=== PATIENT | male | born 1995 | race Two or more races ===

== ENCOUNTER 2016-11-09 21:20 | Emergency (ER) | payer SELFPAY ==
--- NOTE | ~2016-11-09 | ER ---
PATIENT'S NAME: EMILIANA PAINTER [facility] AGE: 21 Y [address] ROOM: [place] [address] LOCATION: [facility] ADMIT DATE: 11/09/2016 ER/Outpatient Report DISCHARGE DATE: 11/10/2016 FAMILY PHYSICIAN: Isaac Perez MD ATTENDING PHYSICIAN: Praveen Huff Time of Arrival: 2120 hours. Time of Evaluation: 2155 hours. CHIEF COMPLAINT: Vomiting, midepigastric abdominal pain. HISTORY OF PRESENT ILLNESS: This is a 21-year-old male, who presents to the ER, who states he has been having some upper abdominal pain and had 2 emesis today. He states this all started around 3 o'clock this afternoon. He states that this is similar pain to when he had his ulcer in his stomach. He states he is supposed to be taking some Prilosec, but he does not take it every day. He states that he also has a sensation that his legs are having a cold chill, but they are on "fire". He states he has not been running any fevers. He has had no troubles with urination. No diarrhea. He states that he did not take anything over- the-counter for his symptoms. ALLERGIES: NO KNOWN ALLERGIES. MEDICATIONS: Please see medication list in nurse's notes. PAST MEDICAL HISTORY: Asthma, peptic ulcers, gallstone. He has had a colonoscopy and endoscopy. SOCIAL HISTORY: He smokes half pack a day for last 5 years. Drinks alcohol occasionally. REVIEW OF SYSTEMS: A 10-point review of system was completed and was negative with the exception of those discussed in the HPI. PHYSICAL EXAMINATION: VITAL SIGNS: Height 5 feet 7 inches stated, weight 93 kg taken, blood pressure is 128/83, pulse 104, respirations 16, temperature 99.7 degrees tympanically, saturations 96% on room air. Sergio Coma Score is 15. GENERAL: An alert, calm, well-developed male, in no acute distress. HEENT: Head: Normocephalic. Eyes: Pupils are equal and reactive to light. PATIENT'S NAME: EMILIANA PAINTER [facility] AGE: 21 Y [address] ROOM: [place] [address] LOCATION: [facility] ADMIT DATE: 11/09/2016 ER/Outpatient Report DISCHARGE DATE: 11/10/2016 FAMILY PHYSICIAN: Isaac Perez MD ATTENDING PHYSICIAN: Praveen Huff He does display moist mucous membranes. LUNGS: Clear to auscultation bilaterally. No wheezes or crackles. Normal respiratory effort. HEART: Slightly tachycardic. No rhythm, lifts, thrills, or murmurs. ABDOMEN: Soft. He does have some tenderness in his midepigastric region. It just above his umbilicus with palpation. He has no guarding. No rebound tenderness. He has good bowel sounds throughout. No masses are palpated. EXTREMITIES: No clubbing, cyanosis, or edema. Full range of motion of all limbs. LABORATORY DATA AND X-RAYS: CBC: White count is 11.2, hemoglobin is 16.0, platelets 233. CMS was unremarkable. Amylase 35, lipase 95. H. pylori was negative. CT scan is pending. EMERGENCY DEPARTMENT COURSE: During his ER course stay with me, we did start an IV and gave him 2 L of IV fluids along with a GI cocktail p.o. and 40 mg of Protonix IV. I will be turning the patient's care over Dr. Huff at this time due to shift change. The patient understands and agrees with care. TALIA REA PA-C FOR DO BERNARDA ENRIQUE/rajeev /[id number] d: t: 11/14/16 1157, OUTPATIENT REPORT
--- NOTE | ~2016-11-09 | ER ---
PATIENT'S NAME: EMILIANA PAINTER [facility] AGE: 21 Y [address] ROOM: [place] [address] LOCATION: [facility] ADMIT DATE: 11/09/2016 ER/Outpatient Report DISCHARGE DATE: 11/10/2016 FAMILY PHYSICIAN: Isaac Perez MD ATTENDING PHYSICIAN: Praveen Huff ADDENDUM: This is an addendum to Han Pickard PA-C's dictation. Please see her dictation for chief complaint, history of present illness, past medical history, past surgical history, social history, allergies, medications, primary care doctor, review of systems, physical exam. HOSPITAL COURSE: The patient was seen and evaluated by myself in conjunction with Han Pickard PA-C. Transfer of care was made to myself at shift change. I did discuss the case with her. I did see and evaluate the patient. The patient does have a nonsurgical abdominal exam at this time. A CT scan of the abdomen and pelvis is obtained. It is read by the night Radiology. It does show mild central abdominal low-grade enteritis or partial ileus. No significant inflammatory changes are currently seen. Small hiatal hernia, otherwise, unremarkable. I have discussed results with the patient and his girlfriend, who is at the bedside. Once again, his abdominal exam is repeated. He continues to have a nonsurgical abdominal exam at this time. His pain is improved. He does report he has a history of ulceration as well. ASSESSMENT AND PLAN: I have written a prescription for Carafate for home. I have asked he follows up with Dr. Perez in 1 to 2 days for re-evaluation. I have discussed return to care instructions including worsening symptoms or any other concerns to return to the emergency department as soon as possible. The patient is agreeable. Girlfriend is agreeable. They are without further questions at this time. DISPOSITION: The patient discharged to home in good condition. DO SIM ENRIQUE/rajeev /[id number] d: 11/10/16 0405 t: 11/10/16 1706, OUTPATIENT REPORT
[~2016-11-09 21:20] MED LIST: AMOXICILLIN250 MG PO; BIAXIN500 MG PO; PERCOCET 10-321 EACH PO; REGLAN10 MG PO
[2016-11-09 22:41] LABS: BASOPHIL # 0.1 K/uL (0.0-0.2); BASOPHIL % 0.3 %; EOSINOPHIL # 0.1 K/uL (0.0-0.5); EOSINOPHIL % 0.5 %; HEMATOCRIT 45.8 % (37.0-53.0); IMMATURE GRANULOCYTE # 0.1 K/uL (0.0-0.3); IMMATURE GRANULOCYTE % 0.3 %; LYMPHOCYTE % 5.9 %; MCHC 34.9 gm/dL (32.0-36.5); MONOCYTE % 5.9 %; MPV 10.6 fl (9.4-12.4); NEUTROPHIL % 87.1 %; NRBC % 0 /100WBC (0-0.00); PLATELET COUNT 233 K/uL (150-450); RBC 5.52 M/uL (4.00-6.00); RDW-CV 12.7 % (11.9-14.6)
[2016-11-09 22:42] LABS: WBC 17.2 K/uL (4.0-11.0)
[2016-11-09 22:58] LABS: ALK PHOS 104 IU/L (33-138); ALT 22 IU/L (12-78); ANION GAP 13.8 (10.0-19.0); AST 13 IU/L (10-40); BLOOD UREA NITROGEN 10 mg/dL (6-24); CALCIUM 8.9 mg/dL (8.5-10.5); CHLORIDE 106 mMol/L (96-110); CO2 24 mMol/L (22-32); ESTIMATED GFR (MDRD EQUATION) > 60; POTASSIUM 3.8 mMol/L (3.7-5.1); SODIUM 140 mMol/L (135-145); TOTAL PROTEIN 7.4 g/dL (6.0-8.4)
[2016-11-09 23:00] LABS: TOTAL BILIRUBIN 1.4 mg/dL (0.0-1.5)
== END 2016-11-10 00:51 | disposition disaster alternative care site (69) ==
LOC: GMED 21:20
PROVIDERS: Emergency Medicine
DX: R10.13 Epigastric pain (principal); R11.10 Vomiting, unspecified; F17.210 Nicotine dependence, cigarettes, uncomplicated
CPT/HCPCS: C9113; J7030; Q9967

== ENCOUNTER 2016-12-28 23:27 | Emergency (ER) | payer SELFPAY ==
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
== END 2016-12-29 00:45 | disposition disaster alternative care site (69) ==
LOC: GACC 23:27
DX: M54.5 Low back pain (principal); M25.562 Pain in left knee; F17.210 Nicotine dependence, cigarettes, uncomplicated; J45.909 Unspecified asthma, uncomplicated; K80.50 Calculus of bile duct without cholangitis or cholecystitis without obstruction; Z98.890 Other specified postprocedural states

== ENCOUNTER → 2016-12-28 | Outpatient (CLI) | payer OTHER | END | disposition disaster alternative care site (69) | LOC: GAMB 23:07 | DX: S39.92XA Unspecified injury of lower back, initial encounter (principal); M54.5 Low back pain; M25.562 Pain in left knee; K29.50 Unspecified chronic gastritis without bleeding; G89.11 Acute pain due to trauma; V49.9XXA Car occupant (driver) (passenger) injured in unspecified traffic accident, initial encounter | CPT/HCPCS: A0425; A0427; J3010 ==

== ENCOUNTER 2017-02-10 21:50 | Emergency (ER) | payer SELFPAY ==
--- NOTE | ~2017-02-10 | ER ---
PATIENT'S NAME: EMILIANA PAINTER [facility] AGE: 21 Y [address] ROOM: [place] [address] LOCATION: [facility] ADMIT DATE: 02/10/2017 ER/Outpatient Report DISCHARGE DATE: 02/10/2017 FAMILY PHYSICIAN: Isaac Perez MD ATTENDING PHYSICIAN: Tyrone Willis Time of Arrival: 2150 hours. Time of Evaluation: 2200 hours. CHIEF COMPLAINT: Possible ulcer flare. HISTORY OF PRESENT ILLNESS: This is a 21-year-old male who presents to the ER, who states that he feels like he is having a flare-up of his stomach ulcer. He states he is not taking his acid reflux medications for the past couple of months. He states he has been having okay time with this until today. He states he has had some nausea, some vomiting, he feels like he maybe have a little bit of brown emesis. He is having some midepigastric pain, it is stabbing in nature, it does not radiate anywhere. He has had no fever, chills, or troubles with urination. He denies any other problems at this time. ALLERGIES: NO KNOWN ALLERGIES. MEDICATIONS: None. PAST MEDICAL HISTORY: Peptic ulcer. PAST SURGERIES: Colonoscopy, EGD, and gallstones removed. SOCIAL HISTORY: Smokes half pack a day. Drinks alcohol occasionally. REVIEW OF SYSTEMS: All systems reviewed and were negative with the exception of those discussed in the HPI. PHYSICAL EXAMINATION: VITAL SIGNS: Height 5 feet and 7 inches stated, weight 96.1 kg taken, blood pressure is 140/83, pulse 88, respirations 16, temperature 96 degrees tympanically, and saturations 97% on room air. PATIENT'S NAME: EMILIANA PAINTER [facility] AGE: 21 Y [address] ROOM: [place], [place] [address] LOCATION: [facility] ADMIT DATE: 02/10/2017 ER/Outpatient Report DISCHARGE DATE: 02/10/2017 FAMILY PHYSICIAN: Isaac Perez MD ATTENDING PHYSICIAN: Tyrone Willis GENERAL: Alert, calm, well-developed male, in no acute distress. HEENT: Head: Normocephalic. Eyes: Pupils are equal and reactive to light. He does display moist mucous membranes. LUNGS: Clear to auscultation bilaterally. No wheezes or crackles. HEART: Regular rate and rhythm. ABDOMEN: Soft. He has mild tenderness in his midepigastric region. He has good bowel sounds throughout. No masses are palpated. EXTREMITIES: No clubbing or cyanosis. Has full range of motion of all limbs. LABORATORY DATA: CBC: White count is 6.1, hemoglobin is 15.0, and platelets 185. CMS is unremarkable. Amylase is 32. Lipase is 96. IMPRESSION: 1. History of acid reflux. 2. Nausea and vomiting. ASSESSMENT AND PLAN: We did give the patient a GI cocktail, a [place], and a Zofran here for his discomfort. He states that this did improve that. We advised him to picker feeder some omeprazole and take it every day. He needs to eat bland foods and push fluids. He may take some [id number] Tums or Rolaids for any breakthrough pain. He should follow up with his primary care physician if no improvement and we did provide him without a [facility] card. The patient understands and agrees with care. TALIA REA PA-C FOR MD BERNARDA LORENZANA/rajeev /[id number] d: 02/11/17 0303 t: 02/13/17 1253, OUTPATIENT REPORT
[2017-02-10 22:34] LABS: BASOPHIL % 0.5 %; EOSINOPHIL # 0.2 K/uL (0.0-0.5); EOSINOPHIL % 2.5 %; HEMATOCRIT 42.1 % (37.0-53.0); IMMATURE GRANULOCYTE % 0.3 %; LYMPHOCYTE # 1.2 K/uL (0.8-4.0); LYMPHOCYTE % 19.5 %; MCH 29.8 pg (27.0-34.0); MCHC 35.6 gm/dL (32.0-36.5); MCV 83.5 fl (83.0-98.0); MONOCYTE # 0.4 K/uL (0.0-1.0); MONOCYTE % 6.9 %; MPV 11.1 fl (9.4-12.4); NEUTROPHIL # (ANC) 4.3 K/uL (1.4-9.0); NEUTROPHIL % 70.3 %; NRBC % 0 /100WBC (0-0.00); RBC 5.04 M/uL (4.00-6.00); RDW-CV 12.9 % (11.9-14.6); WBC 6.1 K/uL (4.0-11.0)
[2017-02-10 22:37] LABS: PLATELET COUNT 185 K/uL (150-450)
[2017-02-10 22:52] LABS: ALBUMIN 3.8 gm/dL (3.5-5.0); ALK PHOS 108 IU/L (33-138); ALT 39 IU/L (12-78); ANION GAP 11.8 (10.0-19.0); AST 25 IU/L (10-40); BLOOD UREA NITROGEN 10 mg/dL (6-24); CALCIUM 8.5 mg/dL (8.5-10.5); CHLORIDE 108 mMol/L (96-110); CO2 25 mMol/L (22-32); POTASSIUM 3.8 mMol/L (3.7-5.1); SODIUM 141 mMol/L (135-145); TOTAL PROTEIN 7.2 g/dL (6.0-8.4)
[2017-02-10 22:53] LABS: TOTAL BILIRUBIN 0.5 mg/dL (0.0-1.5)
== END 2017-02-10 23:19 | disposition disaster alternative care site (69) ==
LOC: GMED 21:50
PROVIDERS: Physician Assistant Medical
DX: R11.2 Nausea with vomiting, unspecified (principal); F17.210 Nicotine dependence, cigarettes, uncomplicated; Z98.890 Other specified postprocedural states; Z87.11 Personal history of peptic ulcer disease; Z87.19 Personal history of other diseases of the digestive system